=== PATIENT | male | born 1945 | race Caucasian/White ===

== ENCOUNTER 2022-07-08 08:56 | Emergency (ER) | payer OTHER, SELFPAY ==
[2022-07-08] VITALS (7 sets, daily range): BP systolic 83–163; BP diastolic 49–78; PULSE 65–72; RESP 16–18; TEMP 36.4; O2SAT 93–96; BMI 22.7
[2022-07-08 10:01] LABS: Basophils # 0.1 10^3/uL (0.0-0.1); Basophils % 0.5 %; Eosinophils # 0.1 10^3/uL (0.0-0.8); Eosinophils % 0.6 %; Hematocrit 42.2 % (42.0-52.0); Hemoglobin 13.6 g/dL (11.7-16.6); Lymphocytes # 0.7 10^3/uL (0.8-4.8); Lymphocytes % 4.8 %; Mean Corpuscular HGB Conc 32.2 g/dL (30.0-36.0); Mean Corpuscular Hemoglobin 29.2 pg (28.0-34.0); Mean Corpuscular Volume 90.6 fl (80-94); Mean Platelet Volume 12.1 fL (7.4-10.4); Monocytes # 1.3 10^3/uL (0.2-0.9); Monocytes % 8.8 %; Neutrophils # 12.61 10^3/uL (1.8-7.7); Neutrophils % 84.9 %; Nucleated Red Blood Cells % 0 %; Platelet Count 189 10^3/cmm (130-400); Red Blood Count 4.66 10^6/uL (4.1-5.3); Red Cell Distribution Width 14.9 % (12.1-15.1); White Blood Count 14.9 10^3/uL (4.0-10.0)
--- NOTE | 2022-07-08 10:04 | CT_ITS ---
WS: [id number] CT ABDOMEN AND PELVIS NONCONTRAST HISTORY: Abdominal pain TECHNIQUE: Imaging performed through the abdomen and pelvis. Coronal and sagittal reformats are submi tted. All CT scans at [facility] use at least one of these dose optimization techniques: auto mated exposure control; mA and/or kV adjustment per patient size (includes targeted exams where dose is matched to clinical indication); or iterative reconstruction. DLP: 364.62 mGy.cm COMPARISON: None available. Lower thorax: Benign granuloma RIGHT lung base. Normal size heart. Small hiatal hernia. Liver: Normal size liver. No mass or bile duct dilatation. Gallbladder: Mildly hydropic. Wall is slightly thickened no increased density within the lumen. No bi le duct dilatation. Pancreas: Atrophied pancreas. Spleen: Normal. Adrenal glands: Normal. No mass. Right kidney: Normal size kidney. Nonobstructing renal calcifications. 3.0 x 3.4 cm cyst lower pole.. Mild perinephric stranding. Left kidney: Normal size kidney. Vascular calcifications centrally. 1.2 cm cyst upper pole. Mild brnady nephric stranding. Aorta: Aneurysmal dilatation of the infrarenal abdominal aorta. Maximum diameter 5.0 cm. No adjacent periaortic hematoma or fluid. Aneurysm tapers to the bifurcation. No free fluid, intraperitoneal air or significant lymphadenopathy. GI tract: Normal noncontrast imaging of the stomach, small bowel and colon. No obstruction or wall th ickening. Appendix is not identified. Abdominal wall: Negative. No hernia. Pelvis: No free fluid or adenopathy. Urinary bladder is not distended. Numerous bladder calcification s are identified. Cluster of calcifications in the posterior RIGHT urinary bladder measures 2.5 x 1.5 cm. Smaller cluster of calcifications on the LEFT. Mild prostate enlargement. Osseous structures: Unremarkable. CT/CT abdomen pelvis wo con [id number] IMPRESSION: 1. Mildly hydropic gallbladder. Mild wall thickening. Consider RIGHT upper catia drant ultrasound to evaluate for stones or sludge. No bile duct dilatation. 2. Nonruptured abdominal aortic aneurysm with a maximum diameter of 5.0 cm. 3. No GI tract obstruction. The appendix is not definitely visualized but no s econdary findings of appendicitis. 4. Mild perinephric stranding around each kidney can be seen with urinary trac t infection or chronic. 5. Numerous calcifications in the urinary bladder. Largest cluster of calcific ations measures 2.5 x 1.5 cm.
--- NOTE | 2022-07-08 10:16 | ED_ITS ---
Documented by User: Kristian Whipple DO 07/09/22 06:22 HPI - Abdominal Pain General: Chief Complaint: Abdominal Pain Stated Complaint: abd pains Time Seen by Provider: 07/08/22 09:00 Source: patient Mode of arrival: ambulatory Limitations: no limitations History of Present Illness: MD elicited complaint: abdominal pain Onset (ago): day(s) Pain Consistency: constant Location: RUQ Severity: moderate Quality: cramping Migration to: other (Back right shoulder) Exacerbating factors: eating Relieving factors: nothing Associated Symptoms: Reports bloating, GI cramping, nausea and poor appetite; Denies anorexia, belching, change in bowel habits, change in stool character, chills, coffee ground emesis, constipation, diarrhea, dyspepsia, dysuria, excessive flatus, fever(s), heartburn, hematochezia, hematuria, hematemesis, fecal incontinence, loose stools, melena, syncope and vomiting Review of Systems Const: Denies: fever(s), chills, fatigue or malaise ENMT: Denies: throat pain, ear or mastoid pain, nasal discharge or nasal congestion Card: Denies: chest pain, palpitations, irregular heart rhythm, edema or syncope Resp: Denies: dyspnea, productive cough or non-productive cough GI: Reports: abdominal pain, nausea, bloating and GI cramping; Denies: vomiting, hematemesis, coffee ground emesis, heartburn, diarrhea, constipation, belching, excessive flatus, fecal incontinence, change in bowel habits, change in stool character, hematochezia or melena : Denies: flank pain, difficulty urinating, dysuria, urinary frequency, urinary urgency or hematuria Skin/Breast: Denies: rash or pruritus Physical Exam Const: GENERAL APPEARANCE: cooperative ORIENTATION/CONSCIOUSNESS: Yes awake, Yes oriented to person, Yes oriented to place and Yes oriented to time HENMT: COMMON NORMALS: normocephalic, atraumatic and hearing grossly normal bilaterally HEAD & SCALP: normocephalic and atraumatic Resp: COMMON NORMALS: normal respiratory effort, No retractions, No use of accessory muscles and clear to auscultation bilaterally AUSCULTATION: clear to auscultation bilaterally Cardio: COMMON NORMALS: regular rate, regular rhythm and No murmurs present (Cardio) RATE: regular rate RHYTHM: regular rhythm GI: COMMON NORMALS: No hepatosplenomegaly present AUSCULTATION: Yes normoactive bowel sounds PALPATION: Yes Tenderness to palpation present (GI) (Positive Regan's) Details: RUQ, No Guarding due to palpation present (GI) and Yes No hepatosplenomegaly present Extremity: COMMON NORMALS: normal to inspection, capillary refill normal, no clubbing, cyanosis or edema, no calf tenderness and no pedal edema Neuro: SENSORIUM/ORIENTATION: Yes oriented to person, Yes oriented to place and Yes oriented to time Skin: COMMON NORMALS: no rashes or lesions noted GENERAL SKIN EXAM: no rashes or lesions noted Course Vital Signs: Vital signs: Vital Signs Temperature 97.6 F 07/08/22 09:02 Pulse Rate 72 07/08/22 21:04 Respiratory Rate 18 07/08/22 20:16 Blood Pressure 150/65 07/08/22 20:16 Pulse Oximetry 94 07/08/22 21:04 Oxygen Delivery Me thod Room Air 07/08/22 20:16 MDM - Abdominal Pain Medical Decision Making Initial exam and labs show significant hyperbilirubinemia patient is quite icteric. Gallbladder ultrasound shows dilated common bile duct. MRCP confirms distal common bile duct obstruction. See radiology report not entirely certain is a stone versus a stricture or soft tissue obstruction. Called and talked to the transfer line at [facility] in [place] where awaiting a call back to review with the physician. Care signed out to Dr. Mireles at change of shift. See final notes for diagnosis and disposition. Patient presents here with abdominal pain along with jaundice MRCP here does show dilated bile duct with likely blockage or stenosis no stone seen on the MRCP patient is afebrile here I took patient over from Dr. Gates I spoke to Dr. Medina at [facility] in [place] and will transfer there for high-level care as patient needs ERCP and we do not have ERCP capability Medical Records I reviewed the patient's medical records. Lab Data I reviewed the patient's lab results. 07/08/22 09:50 07/08/22 09:50 Labs/Radiology: Radiology Impressions Abdomen/Pelvis CT 07/08/22 10:04 IMPRESSION: 1. Mildly hydropic gallbladder. Mild wall thickening. Consider RIGHT upper quadrant ultrasound to evaluate for stones or sludge. No bile duct dilatation. 2. Nonruptured abdominal aortic aneurysm with a maximum diameter of 5.0 cm. 3. No GI tract obstruction. The appendix is not definitely visualized but no secondary findings of appendicitis. 4. Mild perinephric stranding around each kidney can be seen with urinary tract infection or chronic. 5. Numerous calcifications in the urinary bladder. Largest cluster of calcifications measures 2.5 x 1.5 cm. Gallbladder Ultrasound 07/08/22 10:54 IMPRESSION: 1. Mildly hydropic gallbladder with sludge. Gallbladder wall thickening is just slightly enlarged. There is also very slight dilatation of the common bile duct to 10 mm. Consider MRCP for further evaluation of the common bile duct and pancreatic head. 2. Abdominal aortic aneurysm 4.7 cm. Cholangiopancreatography MRI 07/08/22 11:29 IMPRESSION: 1. Mild biliary dilatation of terminating abruptly at the distal common bile duct that may be due to distal common duct stricture or occult ampullary stenosis. Consider ERCP for further evaluation. 2. Mild gallbladder distention likely similar in nature. 3. Findings involving the pancreas suggestive of chronic pancreatitis 4. Multiple small renal cysts, likely benign. 5. 4.9 cm aneurysm of the abdominal aorta. Laboratory Results WBC 14.9 10^3/uL (4.0-10.0) H 07/08/22 09:50 RBC 4.66 10^6/uL (4.1-5.3) 07/08/22 09:50 Hgb 13.6 g/dL (11.7-16.6) 07/08/22 09:50 Hct 42.2 % (42.0-52.0) 07/08/22 09:50 MCV 90.6 fl (80-94) 07/08/22 09:50 MCH 29.2 pg (28.0-34.0) 07/08/22 09:50 MCHC 32.2 g/dL (30.0-36.0) 07/08/22 09:50 RDW 14.9 % (12.1-15.1) 07/08/22 09:50 Plt Count 189 10^3/cmm (130-400) 07/08/22 09:50 MPV 12.1 fL (7.4-10.4) H 07/08/22 09:50 Neut % (Auto) 84.9 % 07/08/22 09:50 Lymph % (Auto) 4.8 % 07/08/22 09:50 Greene % (Auto) 8.8 % 07/08/22 09:50 Eos % (Auto) 0.6 % 07/08/22 09:50 Baso % (Auto) 0.5 % 07/08/22 09:50 Neut # (Auto) 12.61 10^3/uL (1.8-7.7) H 07/08/22 09:50 Lymph # (Auto) 0.7 10^3/uL (0.8-4.8) L 07/08/22 09:50 Greene # (Auto) 1.3 10^3/uL (0.2-0.9) H 07/08/22 09:50 Eos # (Auto) 0.1 10^3/uL (0.0-0.8) 07/08/22 09:50 Baso # (Auto) 0.1 10^3/uL (0.0-0.1) 07/08/22 09:50 Nucleated RBC % (auto) 0 % 07/08/22 09:50 Nucleated RBCs # 0.0 /100WBC 07/08/22 09:50 PT 15.90 SECONDS (12.1-14.9) H 07/08/22 10:05 INR 1.23 (0.8-1.2) H 07/08/22 10:05 APTT 34.7 SECONDS (23.9-36.7) 07/08/22 10:05 Sodium 140 mmol/L (136-145) 07/08/22 09:50 Potassium 3.8 mmol/L (3.5-5.1) 07/08/22 09:50 Chloride 101 mmol/L (98-107) 07/08/22 09:50 Carbon Dioxide 23 mmol/L (22-29) 07/08/22 09:50 Anion Gap 19.8 (5-19) H 07/08/22 09:50 BUN 18 mg/dL (8-23) 07/08/22 09:50 Creatinine 0.6 mg/dL (0.7-1.2) L 07/08/22 09:50 GFR Calculation Not Reportable 07/08/22 09:50 Glucose 171 mg/dL (65-115) H 07/08/22 09:50 Calculated Osmolality 296 mOsm/kg (285-295) H 07/08/22 09:50 Calcium 8.8 mg/dL (8.5-10.5) 07/08/22 09:50 Total Bilirubin 5.4 mg/dL (0.15-1.2) H 07/08/22 09:50 AST 140 U/L (0-40) H 07/08/22 09:50 ALT 255 U/L (0-41) H 07/08/22 09:50 Alkaline Phosphatase 646 U/L (40-130) H 07/08/22 09:50 Ammonia 23 umol/L (16-60) 07/08/22 10:05 Total Protein 6.3 g/dL (6.6-8.7) L 07/08/22 09:50 Albumin 3.5 g/dL (3.5-5.2) 07/08/22 09:50 Globulin 2.8 g/dL (1.3-4.6) 07/08/22 09:50 Lipase 21 U/L (13-60) 07/08/22 09:50 Urine Color Dark yellow (Yellow) 07/08/22 12:19 Urine Appearance Hazy (CLEAR) A 07/08/22 12:19 Urine pH 5 (5-7) 07/08/22 12:19 Ur Specific [place] 1.020 (1.005-1.030) 07/08/22 12:19 Urine Protein 1+ (Negative) H 07/08/22 12:19 Urine Glucose (UA) Norm (Normal) 07/08/22 12:19 Urine Ketones Negative (Negative) 07/08/22 12:19 Urine Blood 2+ (Negative) H 07/08/22 12:19 Urine Nitrate Negative (Negative) 07/08/22 12:19 Urine Bilirubin 2+ (Negative) H 07/08/22 12:19 Urine Urobilinogen 4 mg/dL (Negative) H 07/08/22 12:19 Ur Leukocyte Esterase Negative (Negative) 07/08/22 12:19 Urine RBC 5-10 /hpf (0-2) H 07/08/22 12:19 Urine WBC 0-4 /hpf (0-5) H 07/08/22 12:19 Ur Squamous Epith Cells 0-4 /hpf (0-5) H 07/08/22 12:19 Calcium Oxalate Crystal 10-15 /hpf H 07/08/22 12:19 Amorphous Sediment Not Reportable 07/08/22 12:19 Urine Bacteria 1+ /hpf (NONE) H 07/08/22 12:19 Hyaline Casts 0-4 /lpf H 07/08/22 12:19 Urine Mucus Trace /hpf 07/08/22 12:19 Discharge Plan Discharge Patient Disposition: Xfer Short-Term Hosp Clinical Impression: Abdominal pain, Obstructive jaundice Condition: Stable Referrals: Russel Barry DO [Primary Care Provider] - Patient Instructions: Abdominal Pain (ED) Coding Level of Care Code ED Carpenter Helper Maintenance for Chg Fwd Documented by User: Mikaela Mireles MD 07/08/22 18:41 HPI - Abdominal Pain General: Chief Complaint: Abdominal Pain Stated Complaint: abd pains Time Seen by Provider: 07/08/22 09:00 Source: patient Mode of arrival: ambulatory Limitations: no limitations History of Present Illness: . Course Vital Signs: Vital signs: Vital Signs Temperature 97.6 F 07/08/22 09:02 Pulse Rate 72 07/08/22 21:04 Respiratory Rate 18 07/08/22 20:16 Blood Pressure 150/65 07/08/22 20:16 Pulse Oximetry 94 07/08/22 21:04 Oxygen Delivery Me thod Room Air 07/08/22 20:16 MDM - Abdominal Pain Medical Decision Making Patient presents here with abdominal pain along with jaundice MRCP here does show dilated bile duct with likely blockage or stenosis no stone seen on the MRCP patient is afebrile here I took patient over from Dr. Gates I spoke to Dr. Medina at [facility] in [place] and will transfer there for high-level care as patient needs ERCP and we do not have ERCP capability Medical Records I reviewed the patient's medical records. Lab Data I reviewed the patient's lab results. 07/08/22 09:50 07/08/22 09:50 Labs/Radiology: Radiology Impressions Abdomen/Pelvis CT 07/08/22 10:04 IMPRESSION: 1. Mildly hydropic gallbladder. Mild wall thickening. Consider RIGHT upper quadrant ultrasound to evaluate for stones or sludge. No bile duct dilatation. 2. Nonruptured abdominal aortic aneurysm with a maximum diameter of 5.0 cm. 3. No GI tract obstruction. The appendix is not definitely visualized but no secondary findings of appendicitis. 4. Mild perinephric stranding around each kidney can be seen with urinary tract infection or chronic. 5. Numerous calcifications in the urinary bladder. Largest cluster of calcifications measures 2.5 x 1.5 cm. Gallbladder Ultrasound 07/08/22 10:54 IMPRESSION: 1. Mildly hydropic gallbladder with sludge. Gallbladder wall thickening is just slightly enlarged. There is also very slight dilatation of the common bile duct to 10 mm. Consider MRCP for further evaluation of the common bile duct and pancreatic head. 2. Abdominal aortic aneurysm 4.7 cm. Cholangiopancreatography MRI 07/08/22 11:29 IMPRESSION: 1. Mild biliary dilatation of terminating abruptly at the distal common bile duct that may be due to distal common duct stricture or occult ampullary stenosis. Consider ERCP for further evaluation. 2. Mild gallbladder distention likely similar in nature. 3. Findings involving the pancreas suggestive of chronic pancreatitis 4. Multiple small renal cysts, likely benign. 5. 4.9 cm aneurysm of the abdominal aorta. Laboratory Results WBC 14.9 10^3/uL (4.0-10.0) H 07/08/22 09:50 RBC 4.66 10^6/uL (4.1-5.3) 07/08/22 09:50 Hgb 13.6 g/dL (11.7-16.6) 07/08/22 09:50 Hct 42.2 % (42.0-52.0) 07/08/22 09:50 MCV 90.6 fl (80-94) 07/08/22 09:50 MCH 29.2 pg (28.0-34.0) 07/08/22 09:50 MCHC 32.2 g/dL (30.0-36.0) 07/08/22 09:50 RDW 14.9 % (12.1-15.1) 07/08/22 09:50 Plt Count 189 10^3/cmm (130-400) 07/08/22 09:50 MPV 12.1 fL (7.4-10.4) H 07/08/22 09:50 Neut % (Auto) 84.9 % 07/08/22 09:50 Lymph % (Auto) 4.8 % 07/08/22 09:50 Greene % (Auto) 8.8 % 07/08/22 09:50 Eos % (Auto) 0.6 % 07/08/22 09:50 Baso % (Auto) 0.5 % 07/08/22 09:50 Neut # (Auto) 12.61 10^3/uL (1.8-7.7) H 07/08/22 09:50 Lymph # (Auto) 0.7 10^3/uL (0.8-4.8) L 07/08/22 09:50 Greene # (Auto) 1.3 10^3/uL (0.2-0.9) H 07/08/22 09:50 Eos # (Auto) 0.1 10^3/uL (0.0-0.8) 07/08/22 09:50 Baso # (Auto) 0.1 10^3/uL (0.0-0.1) 07/08/22 09:50 Nucleated RBC % (auto) 0 % 07/08/22 09:50 Nucleated RBCs # 0.0 /100WBC 07/08/22 09:50 PT 15.90 SECONDS (12.1-14.9) H 07/08/22 10:05 INR 1.23 (0.8-1.2) H 07/08/22 10:05 APTT 34.7 SECONDS (23.9-36.7) 07/08/22 10:05 Sodium 140 mmol/L (136-145) 07/08/22 09:50 Potassium 3.8 mmol/L (3.5-5.1) 07/08/22 09:50 Chloride 101 mmol/L (98-107) 07/08/22 09:50 Carbon Dioxide 23 mmol/L (22-29) 07/08/22 09:50 Anion Gap 19.8 (5-19) H 07/08/22 09:50 BUN 18 mg/dL (8-23) 07/08/22 09:50 Creatinine 0.6 mg/dL (0.7-1.2) L 07/08/22 09:50 GFR Calculation Not Reportable 07/08/22 09:50 Glucose 171 mg/dL (65-115) H 07/08/22 09:50 Calculated Osmolality 296 mOsm/kg (285-295) H 07/08/22 09:50 Calcium 8.8 mg/dL (8.5-10.5) 07/08/22 09:50 Total Bilirubin 5.4 mg/dL (0.15-1.2) H 07/08/22 09:50 AST 140 U/L (0-40) H 07/08/22 09:50 ALT 255 U/L (0-41) H 07/08/22 09:50 Alkaline Phosphatase 646 U/L (40-130) H 07/08/22 09:50 Ammonia 23 umol/L (16-60) 07/08/22 10:05 Total Protein 6.3 g/dL (6.6-8.7) L 07/08/22 09:50 Albumin 3.5 g/dL (3.5-5.2) 07/08/22 09:50 Globulin 2.8 g/dL (1.3-4.6) 07/08/22 09:50 Lipase 21 U/L (13-60) 07/08/22 09:50 Urine Color Dark yellow (Yellow) 07/08/22 12:19 Urine Appearance Hazy (CLEAR) A 07/08/22 12:19 Urine pH 5 (5-7) 07/08/22 12:19 Ur Specific [place] 1.020 (1.005-1.030) 07/08/22 12:19 Urine Protein 1+ (Negative) H 07/08/22 12:19 Urine Glucose (UA) Norm (Normal) 07/08/22 12:19 Urine Ketones Negative (Negative) 07/08/22 12:19 Urine Blood 2+ (Negative) H 07/08/22 12:19 Urine Nitrate Negative (Negative) 07/08/22 12:19 Urine Bilirubin 2+ (Negative) H 07/08/22 12:19 Urine Urobilinogen 4 mg/dL (Negative) H 07/08/22 12:19 Ur Leukocyte Esterase Negative (Negative) 07/08/22 12:19 Urine RBC 5-10 /hpf (0-2) H 07/08/22 12:19 Urine WBC 0-4 /hpf (0-5) H 07/08/22 12:19 Ur Squamous Epith Cells 0-4 /hpf (0-5) H 07/08/22 12:19 Calcium Oxalate Crystal 10-15 /hpf H 07/08/22 12:19 Amorphous Sediment Not Reportable 07/08/22 12:19 Urine Bacteria 1+ /hpf (NONE) H 07/08/22 12:19 Hyaline Casts 0-4 /lpf H 07/08/22 12:19 Urine Mucus Trace /hpf 07/08/22 12:19 Discharge Plan Discharge Patient Disposition: Xfer Short-Term Hosp Clinical Impression: Abdominal pain, Obstructive jaundice Condition: Stable Referrals: Russel Barry DO [Primary Care Provider] - Patient Instructions: Abdominal Pain (ED) Coding Level of Care Code ED Carpenter Helper Maintenance for Panfilo Doan
[2022-07-08 10:24] LABS: Alanine Aminotransferase 255 U/L (0-41); Albumin Level 3.5 g/dL (3.5-5.2); Alkaline Phosphatase 646 U/L (40-130); Anion Gap 19.8 (5-19); Aspartate Amino Transferase 140 U/L (0-40); Blood Urea Nitrogen 18 mg/dL (8-23); Calcium 8.8 mg/dL (8.5-10.5); Carbon Dioxide 23 mmol/L (22-29); Chloride 101 mmol/L (98-107); Globulin 2.8 g/dL (1.3-4.6); Glucose 171 mg/dL (65-115); Lipase 21 U/L (13-60); Osmolality Calculated 296 mOsm/kg (285-295); Potassium 3.8 mmol/L (3.5-5.1); Sodium 140 mmol/L (136-145); Total Bilirubin 5.4 mg/dL (0.15-1.2); Total Protein 6.3 g/dL (6.6-8.7)
--- NOTE | 2022-07-08 10:54 | US_ITS ---
WS: [id number] RIGHT UPPER QUADRANT ULTRASOUND HISTORY: hyperbilirubinemia COMPARISON: CT 07/08/2022 Liver: 16.0 cm in length. Normal size liver and echogenicity. No bile duct dilatation or mass. Portal Vein: Normal hepatopetal flow with monophasic waveform. Gallbladder: Mild gallbladder hydrops. Sludge layering in the gallbladder. No pericholecystic fluid. Gallbladder wall is top normal size. CBD: 1.0 cm Pancreas: Atrophied pancreas. Pancreatic duct is mildly prominent measuring just up to 3 mm. No mass involving the pancreatic head. Right kidney: 12.7 cm in length. Normal size kidney. Lower pole mass is a cyst measuring 3.3 x 2.7 x 2.7 cm. Aorta and IVC: Aneurysmal dilatation extends over a length of 7.0 cm. Maximum transverse diameter is 4.7 cm. No ascites. US/US gall bladder [id number] IMPRESSION: 1. Mildly hydropic gallbladder with sludge. Gallbladder wall thickening is jus t slightly enlarged. There is also very slight dilatation of the common bile du ct to 10 mm. Consider MRCP for further evaluation of the common bile duct and p ancreatic head. 2. Abdominal aortic aneurysm 4.7 cm.
[2022-07-08] MEDS: sodium chloride 0.9% 1,000 ML 999 ML IV ×2 (11:12→14:07)
--- NOTE | 2022-07-08 11:29 | MRR_ITS ---
PROCEDURE INFORMATION: Exam: MR Abdomen Without Contrast Exam date and time: 07/08/2022 1:00 PM Age: 77 years old Clinical indication: Abdominal pain; Epigastric; Additional info: Dialated cbd TECHNIQUE: Imaging protocol: Magnetic resonance imaging of the abdomen without contrast. COMPARISON: CT abdomen pelvis con [id number] 07/08/2022 10:18 AM FINDINGS: Liver: There is mild biliary dilatation of the intrahepatic and extrahepatic bile ducts with common bile duct measuring up to 1.2 cm with abrupt termination just above the M2. No obvious obstructing mass or retained common duct stone. Findings would suggest stricture or occult ampullary stenosis. Gallbladder and bile ducts: Gallbladder is mildly distended. No gallstones detected. Gallbladder wall is borderline thickened. No pericholecystic fluid. Pancreas: There is no pancreatic mass or enlargement detected on this noncontrast study. Main pancreatic duct is mildly dilated measuring 4 mm with a few small cystic dilated side branches and adjacent pancreatic atrophy suggestive of chronic pancreatitis.. Spleen: Unremarkable. No splenomegaly. Adrenal glands: Unremarkable. No mass. Kidneys and ureters: Few renal cysts both kidneys measuring up to 4 cm that appear benign otherwise kidneys are unremarkable. Stomach and bowel: Visualized stomach and intestines are unremarkable. Intraperitoneal space: No free fluid. Vasculature: Aneurysmal dilatation distal abdominal aorta measuring 4.9 cm in maximum diameter. Bones/joints: Unremarkable. Soft tissues: Unremarkable. MR/MR MRCP [id number] IMPRESSION: 1. Mild biliary dilatation of terminating abruptly at the distal common bile duct that may be due to distal common duct stricture or occult ampullary stenosis. Consider ERCP for further evaluation. 2. Mild gallbladder distention likely similar in nature. 3. Findings involving the pancreas suggestive of chronic pancreatitis 4. Multiple small renal cysts, likely benign. 5. 4.9 cm aneurysm of the abdominal aorta.
[2022-07-08 12:08] LABS: INR 1.23 (0.8-1.2)
[2022-07-08 12:09] LABS: Partial Thromboplastin Time 34.7 SECONDS (23.9-36.7)
[2022-07-08 12:14] LABS: Ammonia 23 umol/L (16-60)
[2022-07-08 12:45] LABS: Add Urine Microscopic? YES; Bilirubin Urine 2+ (Negative); Blood Urine 2+ (Negative); Glucose Urine UA Norm (Normal); Ketones Urine Negative (Negative); Leukocyte Esterase Urine Negative (Negative); Nitrate Urine Negative (Negative); Protein Urine 1+ (Negative); Urine Appearance Hazy (CLEAR); Urine Color Dark Yellow (Yellow); Urobilinogen Urine 4 mg/dL (Negative); pH Urine 5 (5-7)
[2022-07-08 13:03] LABS: Bacteria Urine 1+ /hpf; Mucus Urine TRACE /hpf; Squamous Epithelial Cell Urine 0-4 /hpf (0-5); WBC Urine 0-4 /hpf (0-5)
[2022-07-08 13:04] LABS: Add Urine Culture? No; Hyaline Casts Urine 0-4 /lpf
[2022-07-08] MEDS: sodium chlor 0.9% + KCl 20 mEq 20 MEQ/1,000 ML BAG 125 MEQ IV (17:27)
== END 2022-07-08 21:05 | disposition short-term general hospital (02) ==
PROVIDERS: Family Medicine; Physician Assistant; Emergency Provider Emergency Medicine; PCP Emergency Medicine Emergency Medical Services
DX: K83.1 Obstruction of bile duct (principal); R10.9 Unspecified abdominal pain
CPT/HCPCS: 36415; 74176; 74181; 76705; 80053; 81001; 82140; 83690; 85025; 85610; 85730; 96365; 96366; 99285; J3480; J7030

== ENCOUNTER 2022-08-19 07:56 | Oncology outpatient (recurring) (ONCR) | payer OTHER, SELFPAY | END 2022-08-19 23:59 | disposition home or self-care (01) | PROVIDERS: PCP Emergency Medicine Emergency Medical Services; Visit Provider Internal Medicine Medical Oncology | DX: C25.0 Malignant neoplasm of head of pancreas (principal); K83.1 Obstruction of bile duct; R63.0 Anorexia; Z68.1 Body mass index [BMI] 19.9 or less, adult; B37.0 Candidal stomatitis; F17.210 Nicotine dependence, cigarettes, uncomplicated; Z79.899 Other long term (current) drug therapy | CPT/HCPCS: 99204 ==

== ENCOUNTER 2022-09-23 17:14 | Emergency (ER) | payer OTHER, SELFPAY ==
[2022-09-23] VITALS (7 sets, daily range): BP systolic 133–171; BP diastolic 67–79; PULSE 85–103; RESP 14–18; TEMP 36.6; O2SAT 93–98; BMI 18.0
--- NOTE | 2022-09-23 18:03 | ED_ITS ---
HPI - Abdominal Pain General: Chief Complaint: Abdominal Pain Stated Complaint: stomach pain/ Time Seen by Provider: 09/23/22 18:02 History of Present Illness: Mr. Davidson is a 77-year-old gentleman with significant past medical history of metastatic pancreatic cancer with history of bili stent placement presenting to the emergency department for evaluation of abdominal pain. He has had some degree of baseline pain well controlled by home medications however had an episode of worsening yesterday and then has had more constant pain today. Right upper quadrant and right mid abdomen. Denies associated GI symptoms. Denies jaundice. No other specific changes in health, exacerbating, or alleviating factors identified. Onset (ago): day(s) Severity: moderate Exacerbating factors: nothing Relieving factors: nothing Associated Symptoms: Reports nausea Review of Systems General: Reports: 10 or more systems reviewed and unremarkable except in HPI and below GI: Reports: nausea PFSH ED 2 PFSH: Medical History Coronary artery disease Hyperlipidemia Hypertension Type 2 diabetes mellitus Surgical History History of coronary artery stent placement History of endoscopic retrograde cholangiopancreatography (07/13/22) History of endoscopic retrograde cholangiopancreatography (07/10/22) History of esophagogastroduodenoscopy (EGD) (07/13/22) EGD with upper EUS History of right inguinal hernia repair Family History Other CAD (coronary artery disease) Diabetes Hyperlipidemia Hypertension Denies family history of Clotting disorder Dementia Psychiatric illness Chronic kidney disease (CKD) Suicide Anesthesia complication Bleeding disorder Lung disease Cancer Stroke Social History Smoking and tobacco status: current every day smoker cigarettes Packs smoked per day: 0.5 Years cigarettes smoked: 50 Physical Exam Const: COMMON NORMALS: alert GENERAL APPEARANCE: cooperative and well developed HENMT: COMMON NORMALS: normocephalic and atraumatic HEAD & SCALP: normocephalic and atraumatic Eye: COMMON NORMALS: conjunctivae normal CONJUNCTIVA: Yes conjunctivae normal SCLERA: sclerae normal Neck/C-Spine: COMMON NORMALS: supple GENERAL: Yes trachea midline Resp: COMMON NORMALS: clear to auscultation bilaterally EFFORT & INSPECTION: Yes able to speak in complete sentences AUSCULTATION: clear to auscultation bilaterally Cardio: COMMON NORMALS: regular rate and regular rhythm RATE: regular rate RHYTHM: regular rhythm GI: COMMON NORMALS: Soft to palpation PALPATION: Yes Soft to palpation, Yes Tenderness to palpation present (GI), No Guarding due to palpation present (GI) and No Rigid due to palpation PERCUSSION: normal to percussion Extremity: GENERAL: Yes normal exam except as noted and No edema Neuro: COMMON NORMALS: moves all extremities SENSORIUM/ORIENTATION: Yes alert and No Orientation impaired Psych: COMMON NORMALS: mental status grossly normal and Normal thought process present THOUGHT PROCESS: Normal thought process present Course Vital Signs: Vital signs: Vital Signs Temperature 97.8 F 09/23/22 17:53 Pulse Rate 93 09/23/22 21:11 Respiratory Rate 18 09/23/22 21:11 Blood Pressure 171/79 09/23/22 21:11 Pulse Oximetry 98 09/23/22 21:11 Oxygen Delivery Me thod Room Air 09/23/22 17:53 MDM - Abdominal Pain Medical Decision Making 77-year-old gentleman with history of pancreatic cancer and stent placement presenting due to abdominal pain. Patient is nontoxic. No evidence of jaundice, cholangitis by exam, or acute surgical abdomen. Labs with leukocytosis which is mild, normal hemoglobin and platelet count. Metabolic panel without significant derangement. No transaminitis, bilirubin is normal, normal lipase. Possible UTI. CT demonstrates right lung base atelectasis, numerous incidental findings noted, possible enteritis. Patient treated with analgesia, antiemetic, fluids and antibiotics and feels improved. The results of ED evaluation were discussed with the patient including prescriptions and/or symptomatic cares (if applicable) including appropriate and responsible use, followup plan, and return precautions. The patient verbalized understanding and felt safe for discharge. Medical Records I reviewed the patient's medical records. Lab Data I reviewed the patient's lab results. 09/23/22 18:17 09/23/22 18:17 Labs/Radiology: Radiology Impressions Abdomen/Pelvis CT 09/23/22 18:50 IMPRESSION: 1. Mild atelectasis/infiltrate posterior right lung base. 2. Head of the pancreas mass and common bile duct stent, with component of biliary ductal dilatation with biliary air. Pancreatic ductal dilatation. 3. Several small hypodense foci within the liver raising the possibility of small metastases. 4. Mild hydropic gallbladder with slight wall thickening and without identification definite stone. 5. Renal cysts. No obstructive uropathy. 6. Prostate enlargement. 7. Multiple urinary bladder stones within the dependent urinary bladder the right. Urinary bladder wall thickening which could be related to component of bladder outlet obstruction with prostate enlargement or infection. 8. 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 9. Presence fluid component within bowel and including colon. This could be associated with underlying enteritis or ileus. COMMENTS: Consistent with the [employer]'s Incidental Findings Committee white paper (J Am Tesha Radiol 2018): Any incidental renal lesion less than 1 cm or classified as too small to characterize, or any incidental cystic renal lesion characterized as simple-appearing, is likely benign. No follow-up imaging is recommended for these lesions per consensus recommendations based on imaging criteria. Laboratory Results WBC 13.9 10^3/uL (4.0-10.0) H 09/23/22 18:17 RBC 4.79 10^6/uL (4.1-5.3) 09/23/22 18:17 Hgb 13.9 g/dL (11.7-16.6) 09/23/22 18:17 Hct 43.2 % (42.0-52.0) 09/23/22 18:17 MCV 90.2 fl (80-94) 09/23/22 18:17 MCH 29.0 pg (28.0-34.0) 09/23/22 18:17 MCHC 32.2 g/dL (30.0-36.0) 09/23/22 18:17 RDW 16.0 % (12.1-15.1) H 09/23/22 18:17 Plt Count 260 10^3/cmm (130-400) 09/23/22 18:17 MPV 9.7 fL (7.4-10.4) 09/23/22 18:17 Neut % (Auto) 83.8 % 09/23/22 18:17 Lymph % (Auto) 8.3 % 09/23/22 18:17 [place] % (Auto) 5.9 % 09/23/22 18:17 Eos % (Auto) 1.3 % 09/23/22 18:17 Baso % (Auto) 0.4 % 09/23/22 18:17 Neut # (Auto) 11.61 10^3/uL (1.8-7.7) H 09/23/22 18:17 Lymph # (Auto) 1.2 10^3/uL (0.8-4.8) 09/23/22 18:17 [place] # (Auto) 0.8 10^3/uL (0.2-0.9) 09/23/22 18:17 Eos # (Auto) 0.2 10^3/uL (0.0-0.8) 09/23/22 18:17 Baso # (Auto) 0.1 10^3/uL (0.0-0.1) 09/23/22 18:17 Nucleated RBC % (auto) 0 % 09/23/22 18:17 Nucleated RBCs # 0.0 /100WBC 09/23/22 18:17 Sodium 137 mmol/L (136-145) 09/23/22 18:17 Potassium 4.2 mmol/L (3.5-5.1) 09/23/22 18:17 Chloride 101 mmol/L (98-107) 09/23/22 18:17 Carbon Dioxide 22 mmol/L (22-29) 09/23/22 18:17 Anion Gap 18.2 (5-19) 09/23/22 18:17 BUN 17 mg/dL (8-23) 09/23/22 18:17 Creatinine 0.4 mg/dL (0.7-1.2) L 09/23/22 18:17 GFR Calculation Not Reportable 09/23/22 18:17 Glucose 146 mg/dL (65-115) H 09/23/22 18:17 Calculated Osmolality 288 mOsm/kg (285-295) 09/23/22 18:17 Calcium 9.1 mg/dL (8.5-10.5) 09/23/22 18:17 Total Bilirubin 0.6 mg/dL (0.15-1.2) 09/23/22 18:17 AST 16 U/L (0-40) 09/23/22 18:17 ALT 21 U/L (0-41) 09/23/22 18:17 Alkaline Phosphatase 268 U/L (40-130) H 09/23/22 18:17 Total Protein 6.0 g/dL (6.6-8.7) L 09/23/22 18:17 Albumin 3.1 g/dL (3.5-5.2) L 09/23/22 18:17 Globulin 2.9 g/dL (1.3-4.6) 09/23/22 18:17 Lipase 17 U/L (13-60) 09/23/22 18:17 Urine Color Yellow (Yellow) 09/23/22 19:18 Urine Appearance Sl hazy (CLEAR) A 09/23/22 19:18 Urine pH 5 (5-7) 09/23/22 19:18 Ur Specific [place] 1.015 (1.005-1.030) 09/23/22 19:18 Urine Protein Trace (Negative) 09/23/22 19:18 Urine Glucose (UA) Norm (Normal) 09/23/22 19:18 Urine Ketones 1+ (Negative) H 09/23/22 19:18 Urine Blood 2+ (Negative) H 09/23/22 19:18 Urine Nitrate Negative (Negative) 09/23/22 19:18 Urine Bilirubin Neg (Negative) 09/23/22 19:18 Urine Urobilinogen 1 mg/dL (Negative) H 09/23/22 19:18 Ur Leukocyte Esterase Trace (Negative) H 09/23/22 19:18 Urine RBC 5-10 /hpf (0-2) H 09/23/22 19:18 Urine WBC 5-10 /hpf (0-5) H 09/23/22 19:18 Ur Squamous Epith Cells 0-4 /hpf (0-5) H 09/23/22 19:18 Amorphous Sediment Not Reportable 09/23/22 19:18 Urine Bacteria None /hpf (NONE) 09/23/22 19:18 Urine Mucus 3+ /hpf 09/23/22 19:18 Discharge Plan Discharge Patient Disposition: Home Clinical Impression: Abdominal pain, Enteritis, Acute UTI Condition: Stable Prescriptions: New ondansetron 4 mg tablet,disintegrating 4 mg PO Q8H PRN (Reason: nausea and vomiting) Qty: 15 0RF oxycodone 5 mg tablet 5 mg PO Q4H PRN (Reason: pain) Qty: 10 0RF No Action nystatin 100,000 unit/mL suspension 500,000 unit PO QID Qty: 140 0RF Rx Instructions: swish and swallow dronabinol 5 mg capsule 5 mg PO BID Qty: 60 0RF Rx Instructions: administer before lunch and evening meal/dinner lubiprostone [Amitiza] 24 mcg capsule 24 mcg PO BID Qty: 60 0RF oxycodone 5 mg tablet 5 mg PO QID PRN (Reason: pain) 30 Days Qty: 120 0RF multivitamin Tablet 1 tab PO DAILY atorvastatin 80 mg tablet 80 mg PO DAILY lisinopril 20 mg tablet 10 mg PO DAILY glipizide 10 mg tablet 10 mg PO BID tamsulosin 0.4 mg capsule 0.4 mg PO DAILY metformin 1,000 mg tablet 1,000 mg PO BID Ferate 240 mg (27 mg iron) tablet 240 mg PO DAILY nitroglycerin 0.4 mg tablet, sublingual 0.4 mg sublingual Q5MIN PRN (Reason: Chest Pain) atenolol 50 mg tablet 25 mg PO DAILY ezetimibe 10 mg tablet 10 mg PO DAILY cholecalciferol (vitamin D3) 25 mcg (1,000 unit) tablet 25 mcg PO DAILY Discharge Orders: Discharge ED (Routine); Ordered 09/23/22 Ordered By: Jagdeep Breen Referrals: Russel Barry DO [Primary Care Provider] - Discharge Diet: Usual diet Discharge Activity: Resume usual activity Patient Instructions: Urinary Tract Infection in Men (ED), Abdominal Pain (ED), Enteritis (ED), Opioid Safety Activity Restrictions/Additional Instructions: Thank you for visiting the emergency department. You were seen and evaluated for abdominal pain. The exact cause of your symptoms is unclear however may be related to mild colitis or UTI or cancer related pain I will prescribe oxycodone for additional pain. Please continue your medication regimen. I will also prescribe antibiotics. You may use [id number] medications such as acetaminophen and ibuprofen for pain however please do not exceed the daily recommended dosage as listed on the packaging and please keep in mind that many namebrand medications contain the same active ingredients. Please avoid these medications if previously instructed to do so by another physician due to other underlying medical condition. Follow-up with oncology and your primary care provider. I will message case management for oncology follow-up. Return for fevers, worsening symptoms, inability to tolerate medications, jaundice, or anything else that you are concerned about and feel needs emergency department evaluation. 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
[2022-09-23 18:26] LABS: Basophils # 0.1 10^3/uL (0.0-0.1); Basophils % 0.4 %; Eosinophils # 0.2 10^3/uL (0.0-0.8); Eosinophils % 1.3 %; Hematocrit 43.2 % (42.0-52.0); Hemoglobin 13.9 g/dL (11.7-16.6); Lymphocytes # 1.2 10^3/uL (0.8-4.8); Lymphocytes % 8.3 %; Mean Corpuscular HGB Conc 32.2 g/dL (30.0-36.0); Mean Corpuscular Volume 90.2 fl (80-94); Mean Platelet Volume 9.7 fL (7.4-10.4); Monocytes # 0.8 10^3/uL (0.2-0.9); Monocytes % 5.9 %; Neutrophils # 11.61 10^3/uL (1.8-7.7); Neutrophils % 83.8 %; Nucleated Red Blood Cells % 0 %; Platelet Count 260 10^3/cmm (130-400); Red Blood Count 4.79 10^6/uL (4.1-5.3); White Blood Count 13.9 10^3/uL (4.0-10.0)
[2022-09-23] MEDS: sodium chloride 0.9% 500 ML 999 ML IV (18:32)
[2022-09-23] MEDS: ondansetron 2 mg/ML SDV 2 mL 4 MG IVP (18:32)
[2022-09-23] MEDS: morphine 4 mg/mL SDV 1 mL IVP ×2 (18:32→20:36)
[2022-09-23 18:45] LABS: Alanine Aminotransferase 21 U/L (0-41); Albumin Level 3.1 g/dL (3.5-5.2); Alkaline Phosphatase 268 U/L (40-130); Anion Gap 18.2 (5-19); Aspartate Amino Transferase 16 U/L (0-40); Blood Urea Nitrogen 17 mg/dL (8-23); Calcium 9.1 mg/dL (8.5-10.5); Carbon Dioxide 22 mmol/L (22-29); Chloride 101 mmol/L (98-107); Globulin 2.9 g/dL (1.3-4.6); Glucose 146 mg/dL (65-115); Lipase 17 U/L (13-60); Osmolality Calculated 288 mOsm/kg (285-295); Potassium 4.2 mmol/L (3.5-5.1); Sodium 137 mmol/L (136-145); Total Bilirubin 0.6 mg/dL (0.15-1.2)
--- NOTE | 2022-09-23 18:50 | CTR_ITS ---
PROCEDURE INFORMATION: Exam: CT Abdomen And Pelvis With Contrast Exam date and time: 09/23/2022 6:58 PM Age: 77 years old Clinical indication: Abdominal pain; Prior surgery; Surgery date: 6+ months; Surgery type: Hernia; Additional info: Ruq/r side pain, HX panc canc/stent TECHNIQUE: Imaging protocol: Computed tomography of the abdomen and pelvis with contrast. Radiation optimization: All CT scans at this facility use at least one of these dose optimization techniques: automated exposure control; mA and/or kV adjustment per patient size (includes targeted exams where dose is matched to clinical indication); or iterative reconstruction. Contrast material: OMNI 350; Contrast volume: 100 ml; Contrast route: INTRAVENOUS (IV); REPORTING DATA: Count of CT and Cardiac NM exams in prior 12 months: This patient has received [address] and 0 known cardiac nuclear medicine studies in the 12 months prior to the current study. COMPARISON: MR MRCP [id number] 07/08/2022 1:00 PM RADIATION DOSE METRICS: Total DLP (mGy-cm): 334.93 FINDINGS: Lungs: Mild atelectasis/infiltrate posterior right lung base that is new from July 08, 2022 exam. Calcified granuloma again seen within the posterior right lung base. Liver: Several small hypodense foci within the liver. This could represent small metastases as appearing new from prior exam. Liver is borderline in size. Gallbladder and bile ducts: A common bile duct stent is seen, new from prior exam. There is a component of biliary ductal dilatation with biliary air in the liver and bile duct/stent. Findings are new from prior exam. Mildly hydropic gallbladder again noted with slightly thickened wall, as noted with prior exam. No definite gallstone is seen. Pancreas: Ill-defined hypodense mass in the head of the pancreas adjacent to the common bile duct stent. Dilatation of the pancreatic duct. Findings are new from prior exam. Spleen: Normal. No splenomegaly. Adrenal glands: Normal. No mass. Kidneys and ureters: Suggestion of hypodense renal cortical cysts when correlated with prior exam. Vascular calcification noted about the kidneys with possible component of small nonobstructing renal calculi. No findings of obstructive uropathy. Stomach and bowel: Presence of gas, fluid, and partial stool content in the colon, with mild increased gas within portions of the colon. Partial fluid within stomach and small bowel. No dilatation of small bowel or obstruction. No bowel hernia. Appendix: The appendix is not definitely seen without secondary signs of appendicitis. Intraperitoneal space: Unremarkable. No free air. No significant fluid collection. Vasculature: Atherosclerotic vascular disease with aneurysm of the infrarenal abdominal aorta with maximum diameter of 5 cm, unchanged with previous exam. No findings to indicate aneurysmal leakage or rupture. Lymph nodes: Unremarkable. No enlarged lymph nodes. Urinary bladder: Prostate enlargement indenting the posterior urinary bladder. Multiple urinary bladder stones within the dependent urinary bladder to the right of midline. Urinary bladder wall thickening. This could be associated with component of bladder outlet obstruction with prostate enlargement or infection. Reproductive: See Urinary bladder finding. Bones/joints: No acute osseous abnormality. Soft tissues: Unremarkable. CT/CT abdomen pelvis w con* [id number] IMPRESSION: 1. Mild atelectasis/infiltrate posterior right lung base. 2. Head of the pancreas mass and common bile duct stent, with component of biliary ductal dilatation with biliary air. Pancreatic ductal dilatation. 3. Several small hypodense foci within the liver raising the possibility of small metastases. 4. Mild hydropic gallbladder with slight wall thickening and without identification definite stone. 5. Renal cysts. No obstructive uropathy. 6. Prostate enlargement. 7. Multiple urinary bladder stones within the dependent urinary bladder the right. Urinary bladder wall thickening which could be related to component of bladder outlet obstruction with prostate enlargement or infection. 8. 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 9. Presence fluid component within bowel and including colon. This could be associated with underlying enteritis or ileus. COMMENTS: Consistent with the [employer]'s Incidental Findings Committee white paper (J Am Tesha Radiol 2018): Any incidental renal lesion less than 1 cm or classified as too small to characterize, or any incidental cystic renal lesion characterized as simple-appearing, is likely benign. No follow-up imaging is recommended for these lesions per consensus recommendations based on imaging criteria.
--- NOTE | 2022-09-23 18:55 | PC.NURSE ---
Report received from LESIA Christine at this time
[2022-09-23] MEDS: iohexol 350 mg/mL 500 mL Btl (per mL) IV (19:05)
[2022-09-23 19:42] LABS: Protein Urine Trace (Negative); Specific Gravity, Urine 1.015 (1.005-1.030); Urine Appearance SL Hazy (CLEAR); Urine Color Yellow (Yellow); pH Urine 5 (5-7)
[2022-09-23 19:43] LABS: Add Urine Culture? No; Add Urine Microscopic? YES; Bilirubin Urine Neg (Negative); Blood Urine 2+ (Negative); Glucose Urine UA Norm (Normal); Ketones Urine 1+ (Negative); Leukocyte Esterase Urine Trace (Negative); Mucus Urine 3+ /hpf; Nitrate Urine Negative (Negative); Squamous Epithelial Cell Urine 0-4 /hpf (0-5); Urobilinogen Urine 1 mg/dL (Negative)
[2022-09-23] MEDS: dicyclomine 10 mg Capsule PO (20:36)
[2022-09-23] MEDS: levoFLOXacin 750 mg Tablet PO (21:10)
== END 2022-09-23 21:12 | disposition home or self-care (01) ==
PROVIDERS: Emergency Medicine; Emergency Provider Emergency Medicine; PCP Emergency Medicine Emergency Medical Services
DX: R10.11 Right upper quadrant pain (principal); K52.9 Noninfective gastroenteritis and colitis, unspecified; N39.0 Urinary tract infection, site not specified
CPT/HCPCS: 36415; 74177; 80053; 81001; 83690; 85025; 96361; 96374; 96375; 96376; 99285; J2270; J2405; J7040; Q9967

== ENCOUNTER 2022-10-26 06:00 | Oncology outpatient (recurring) (ONCR) | payer OTHER, SELFPAY | END 2022-10-31 23:59 | disposition home or self-care (01) | LOC: ONCMED 10-27 11:34 | PROVIDERS: PCP Emergency Medicine Emergency Medical Services; Visit Provider Internal Medicine Medical Oncology | DX: Z53.9 Procedure and treatment not carried out, unspecified reason | CPT/HCPCS: 99215 ==